=== PATIENT | female | born 1955 | race Caucasian/White ===

== ENCOUNTER 2018-06-10 06:02 | Inpatient (IN) | payer MEDICAID ==
[~2018-06-10] VITALS: Ht 162.6 cm; Wt 73.0 kg
[~2018-06-10 06:02] MED LIST: LISI40TA4 PO; SIMV20TA6 PO
[2018-06-10] MEDS ORDERED: ROPIVACAINE HCL 10MG/ML 20 ML VIAL EPI ONE (11:13)
[2018-06-10] MEDS ORDERED: BACITRACIN 50,000 UNITS/VIAL ONE (13:05)
[2018-06-10] MEDS ORDERED: EPINEPHRINE 1:1000 1 MG/ML AMP ONE (13:05)
[2018-06-10] MEDS ORDERED: NORMAL SALINE 0.9% 10 ML SYR ONE (13:05)
[2018-06-10] MEDS ORDERED: BUPIVACAINE/EPINEPH/PF 0.25%/0.0005 10ML ONE (13:05)
[2018-06-10] MEDS ORDERED: MORPHINE SULFATE/PF 1MG/ML 10ML AMP ONE (13:05)
[2018-06-10] MEDS ORDERED: SKIN ADHESIVE 0.7 GM EA TOP ONE (13:06)
[2018-06-10] MEDS ORDERED: BUPIVACAINE HCL/PF 0.5% (5MG/ML) 10ML ONE (13:14)
[2018-06-10] MEDS ORDERED: LIDOCAINE HCL/PF 1% 10 MG/ML 5ML VIAL ONE (13:16)
[2018-06-10] MEDS ORDERED: ONDANSETRON HCL 4MG/2ML INJ ONE (13:30)
[2018-06-10] MEDS ORDERED: FENTANYL CITRATE/PF 50MCG/ML 2ML VIAL ONE (13:32)
[2018-06-10] MEDS ORDERED: ROCURONIUM BROMIDE 10MG/ML VIAL 5ML IV ONE (13:33)
[2018-06-10] MEDS ORDERED: PROPOFOL 200MG/20ML VIAL IV ONE (13:33)
[2018-06-10] MEDS ORDERED: MIDAZOLAM HCL 2 MG/2 ML VIAL ONE (13:35)
[2018-06-10] MEDS ORDERED: BUPIVACAINE HCL/PF 0.25% (2.5MG/ML) 10ML ONE (16:48)
[2018-06-10] MEDS ORDERED: ACETAMINOPHEN 325MG TABLET PO PRN (18:00)
[2018-06-10] MEDS ORDERED: ONDANSETRON HCL 4MG/2ML INJ IV PRN (18:00)
[2018-06-10] MEDS ORDERED: HYDROCODONE/ACETAMINOPHEN 5/325MG TABLET PO PRN ×2 (18:00)
[2018-06-10] MEDS ORDERED: ZOLPIDEM TARTRATE 5MG TABLET PO PRN (18:00)
[2018-06-10] MEDS ORDERED: MORPHINE SULFATE 4 MG/ML CPJ (NOT FOR IM USE) IV PRN ×3 (18:00→19:45)
[2018-06-10 20:05] VITALS: BP 133/67
[2018-06-10] MEDS ORDERED: POLYVINYL ALCOHOL OPHTH DROPS 15ML BOTHEYE PRN (22:00)
[2018-06-11] VITALS: BP 119/51
[2018-06-11 01:19] VITALS: BP 124/62
[2018-06-11 04:00] VITALS: BP 121/53
[2018-06-11 11:14] VITALS: BP_SYST 112; BP_SYST 97; BP_DIAS 112; BP_DIAS 49
[2018-06-11 12:00] VITALS: BP 124/62
== END 2018-06-11 16:11 | disposition home or self-care (01) | DRG 315 ==
LOC: OR 06:02 → 8WST 20:11
PROVIDERS: ADMIT Orthopaedic Surgery; ATTEND Orthopaedic Surgery
PROC: 0MB14ZZ Excision of Right Shoulder Bursa and Ligament, Percutaneous Endoscopic Approach (ICD-10-PCS; 2018-06-10)
PROC: 0RQ Upper Joints, Repair (ICD-10-PCS; 2018-06-10)
PROC: 0PB94ZZ Excision of Right Clavicle, Percutaneous Endoscopic Approach (ICD-10-PCS; 2018-06-10)
PROC: 0LB14ZZ Excision of Right Shoulder Tendon, Percutaneous Endoscopic Approach (ICD-10-PCS; principal; 2018-06-10 13:00)
DX: M19.011 Primary osteoarthritis, right shoulder (principal); E78.5 Hyperlipidemia, unspecified; I10 Essential (primary) hypertension; M65.811 Other synovitis and tenosynovitis, right shoulder; G89.29 Other chronic pain; M75.121 Complete rotator cuff tear or rupture of right shoulder, not specified as traumatic; M75.21 Bicipital tendinitis, right shoulder; M75.41 Impingement syndrome of right shoulder; M94.211 Chondromalacia, right shoulder; M25.811 Other specified joint disorders, right shoulder; M75.51 Bursitis of right shoulder
CPT/HCPCS: 88304; 88311; 97166; 97535; A4216; A4565; J0171; J2250; J2274; J2405; J2704; J2795; J3010; J3490; J7030; J7040; J7120